=== PATIENT | male | born 1960 | race Caucasian/White ===

== ENCOUNTER 2018-07-29 10:21 | Observation (INO) | payer OTHER ==
--- NOTE | 2018-07-28 18:30 | GHP ---
DATE OF ADMISSION: 07/29/2018 ADMISSION DIAGNOSIS: BPH with urinary obstruction. HISTORY OF PRESENT ILLNESS: This is a 58-year-old gentleman who had the above symptoms. He had an A UA score initially of 22, and a postvoid residual 215. PSA was normal as of 12/2017, and he has atte mpted to be using alpha blockers without success. At the present time, he is admitted for a TURP. Sarina huynh has had a prostate ultrasound that revealed a volume of 47.5 g. Postvoid residuals are noted. PSA as of 12/08/2017 was 1.79. ALLERGIES: None. FAMILY HISTORY: Heart disease. SOCIAL HISTORY: Moderate alcohol consumption, nonsmoker. REVIEW OF SYSTEMS: Negative cardiac, respiratory, GI and endocrine. PHYSICAL EXAMINATION: VITAL SIGNS: Stable. CHEST: Clear. HEART: Regular rate and rhythm. ABDOM EN: Normal. No organomegaly, rebound or guarding. LOWER EXTREMITIES: Normal. Ultrasound of the prostate shows intravesical lobe with obstruction. Urodynamics that he had done revealed a peak flow of 2.7 mL/sec, average flow 1.9, postvoid residual 475, and then maximum detrusor contraction was 130 cm of water pressure, and he had significant obstr uction on the transrectal ultrasound. We do have a cystoscopy image which reveals +3 to 4 trabeculation of the bladder and intravesical lob e of the prostate. At the present time, he is admitted for transurethral resection of the prostate. Indications, compli cations, and options been discussed. Written and verbal consent were obtained and he is admitted for the above procedure. /[id number]/MODL
[~2018-07-29 10:21] MED LIST: MIDAZOLAM 2 MG/2 ML VIAL IVP ONE
[2018-07-29] MEDS ORDERED: LR 1,000 ML IV ONE (10:32)
--- NOTE | 2018-07-29 10:35 | PDHPUP ---
History & Physical Update H&P update statement: This history and physical update is based on an assessment of the patient which was completed after admission or registration (within 24 hours), but prior to the surgery/procedure. H&P update: H&P reviewed & patient examined, no change in patient's condition since H&P completed
[2018-07-29] MEDS ORDERED: ceFAZolin 2 GM/DEXTROSE 100 ML IV ONE (10:50)
[2018-07-29] MEDS ORDERED: CEFAZOLIN 2 GM/DEXTROSE/100 ML BAG IV ONE (10:52)
--- NOTE | 2018-07-29 10:54 | PDANEPAE ---
ANE Past Medical History - Cardiovascular History Hx Hypertension: No Hx Arrhythmias: No Hx Chest Pain: No Hx Coronary Artery / Peripheral Vascular Disease: Yes Hx CHF / Valvular Disease: No Hx Palpitations: No Cardiovascular History Comment: 2 stents - Pulmonary History Hx COPD: No Hx Asthma/Reactive Airway Disease: No Hx Recent Upper Respiratory Infection: No Hx Oxygen in Use at Home: No Hx Sleep Apnea: No Sleep Apnea Screening Result - Last Documented: Negative - Neurologic History Hx Cerebrovascular Accident: No Hx Seizures: No Hx Dementia: No - Endocrine History Hx Diabetes: No - Renal History Hx Renal Disorders: No - Liver History Hx Hepatic Disorders: No - Neurological & Psychiatric Hx Hx Neurological and Psychiatric Disorders: Yes Neurological / Psychiatric History Comment: depression - Cancer History Hx Cancer: No - Congenital Disorder History Hx Congenital Disorders: Yes Congenital History Comment: depression - GI History Hx Gastrointestinal Disorders: No - Other Health History Other Health History: none - Chronic Pain History Chronic Pain: No - Surgical History Prior Surgeries: colonoscopy. 2 cardiac stents 07/2017 ANE Review of Systems Review of Systems: - Exercise capacity METS (RN): 5 METS ANE Patient History - Allergies Allergies/Adverse Reactions: No Known Allergies Allergy (Verified 07/22/18 10:49) - Home Medications Home medications: home medication list seen and reviewed Home Medications: Aspirin [Aspirin 81mg (*)] 81 mg PO DAILY 07/22/18 [Last Taken Unknown] Atorvastatin Calcium [Lipitor 40 mg (*)] 80 mg PO DAILY 07/22/18 [Last Taken Unknown] Herbals/Supplements -Info Only 1 ea PO DAILY 07/22/18 [Last Taken Unknown] [place]-3 Fatty Acids [Fish Oil 1000 mg (*)] 1,000 mg PO DAILY 07/22/18 [Last Taken Unknown] Propylthiouracil [Propylthiouracil 50mg (*)] 50 mg PO BID 07/22/18 [Last Taken Unknown] Tamsulosin HCl [Flomax 0.4 MG (*)] 0.4 mg PO DAILY@12 07/22/18 [Last Taken Unknown] - Smoking Hx Smoking Status: Never smoked - Family Anes Hx Family Hx Anesthesia Complications: none ANE Labs/Vital Signs - Vital Signs Height: 185.42 cm Weight: 74.843 kg ANE Physical Exam - Airway Neck exam: FROM Mallampati Score: Class 2 Mouth exam: normal dental/mouth exam - Pulmonary Pulmonary: clear to auscultation - Cardiovascular Cardiovascular: regular rate and rhythym - ASA Status ASA Status: III ANE Anesthesia Plan Anesthesia Plan: GA w LMA
[2018-07-29] MEDS ORDERED: LIDOCAINE 2% JELLY 20 ML (UROJECT) ONE (11:11)
[2018-07-29] MEDS ORDERED: PROPOFOL 200 MG/20 ML VIAL ONE (11:11)
[2018-07-29] MEDS ORDERED: fentaNYL 100 MCG/2 ML INJ ONE ×2 (11:11→13:32)
[2018-07-29] MEDS ORDERED: ONDANSETRON 4 MG/2 ML VIAL ONE (11:55)
[2018-07-29] MEDS ORDERED: DEXAMETHASONE 4 MG/ML VIAL ONE (11:55)
[2018-07-29] MEDS ORDERED: PHENYLEPHRINE HCL 100 MCG/ML SYR ONE (12:20)
[2018-07-29] MEDS ORDERED: NALOXONE HCL 0.4 MG/ML INJ IVP PRN (12:35)
[2018-07-29] MEDS ORDERED: LR 500 ML IV PRN (12:35)
[2018-07-29] MEDS ORDERED: ALBUTEROL 3 ML DEYVIAL IH PRN (12:35)
[2018-07-29] MEDS ORDERED: METOCLOPRAMIDE 10 MG/2 ML VIAL IVP PRN (12:35)
[2018-07-29] MEDS ORDERED: MEPERIDINE 25 MG/0.5 ML AMP IVP PRN (12:35)
[2018-07-29] MEDS ORDERED: PROMETHAZINE HCL 25 MG/ML INJ IVP PRN (12:35)
[2018-07-29] MEDS ORDERED: DIAZEPAM 5 MG/ML 1 ML SYR IVP PRN (12:35)
[2018-07-29] MEDS ORDERED: HYDROmorphONE/DILAUDID 2 MG/ML INJ IVP PRN (12:35)
[2018-07-29] MEDS ORDERED: fentaNYL 100 MCG/2 ML INJ IVP PRN (12:35)
[2018-07-29] MEDS ORDERED: ONDANSETRON 4 MG/2 ML VIAL IVP PRN ×2 (12:35→12:50)
[2018-07-29] MEDS ORDERED: LABETALOL HCL 5 MG/ML 20 ML MDV IVP PRN (12:35)
[2018-07-29] MEDS ORDERED: OPIUM/BELLADONNA ALKALO SUPP PR PRN (12:47)
--- NOTE | 2018-07-29 12:47 | POSTOPPROG ---
Post Op Note Date of Operation: 07/29/18 (dictated) Surgeon: Raudel Suarez Anesthesiologist: Carine Anesthesia: LMA Pre-op Diagnosis: bph / retention Procedure: turp Inf/Abcess present in the surg proc area at time of surgery?: No EBL: 50-100 Drains: Other (urban) Specimen(s): sent
[2018-07-29] MEDS ORDERED: ONDANSETRON DISINTEGRATING 4 MG TAB PO PRN (12:50)
[2018-07-29] MEDS ORDERED: ACETAMINOPHEN 325 MG TAB PO PRN (12:50)
[2018-07-29] MEDS ORDERED: ZOLPIDEM TARTRATE 5 MG TAB PO PRN (12:50)
[2018-07-29] MEDS ORDERED: D5W LR 1,000 ML IV SCH (13:00)
--- NOTE | 2018-07-29 13:04 | POSTANESTH ---
Post Anesthetic Evaluation Cardiovascular Status: Normal, Stable Respiratory Status: Normal, Stable Level of Consciousness/Mental Status: Can Participate in Eval Pain Control: Adequate, Prn Tx Ordered Nausea/Vomiting Control: Adequate, Prn Tx Ordered Complications Possibly Related to Anesthesia: None Noted
--- NOTE | 2018-07-29 13:11 | GOP ---
DATE OF OPERATION: 07/29/2018 SURGEON: Raudel Suarez MD ANESTHESIA: General. ANESTHESIOLOGIST: Daisy Hawk MD. PREOPERATIVE DIAGNOSIS: Benign prostatic hypertrophy with obstruction. POSTOPERATIVE DIAGNOSIS: Benign prostatic hypertrophy with obstruction. PROCEDURE PERFORMED: Transurethral resection of the prostate. FINDINGS: SPECIMENS: Sent to pathology. DESCRIPTION OF PROCEDURE: After being prepped and draped in normal sterile fashion in dorsal lithoto my position, appropriate time-out was done. The resectoscope passed the bladder under direct vision. He had an intravesical lobe lateral lobar hypertrophy noted and +3 to 4 trabeculation of bladder. At that point, I took down the intravesical lobe of the prostate with bipolar. Then the right latera l lobe and right posterior lobe, left lateral lobe and left portion of the posterior lobe resected in a similar fashion. At the end of the procedure, the ureteral orifices preserved. Bladder was Ellik 'd free of all chips and clots. Bladder neck was hemostatic and verumontanum preserved. External sp hincter approximated at the midline symmetrically. With a coude maneuver, he had an excellent flow. Uro-jet placed in his urethra and a Ku catheter placed with 70 cc balloon inflated, traction plac ed. He will be admitted overnight. COMPLICATIONS: No complications encountered. /[id number]/MODL
--- NOTE | 2018-07-29 16:19 | ASMTCMCOM ---
CM Note CM Note Notes: Patient chart reviewed for discharge planning purposes. 58 year old male s/p TURP. No current needs identified CM available should needs change. Plan: likely to discharge independently when medically stable for discharge. Date Signed: 07/29/2018 04:19 PM Electronically Signed By:Hyun Cavanaugh RN
[2018-07-29] MEDS: HYDROCODONE/APAP 5/325 TAB PO PRN (20:05)
[2018-07-29] MEDS: PROPYLTHIOURACIL 50 MG TAB PO SCH (20:06)
[2018-07-30] MEDS: HYDROCODONE/APAP 5/325 TAB PO PRN (04:17)
[2018-07-30 07:34] VITALS: BP 101/58
[2018-07-30] MEDS: PROPYLTHIOURACIL 50 MG TAB PO SCH (08:06)
--- NOTE | 2018-07-30 08:22 | SOAPPROG ---
SOAP Progress Note Assessment/Plan: Assessment: BPH with obstruction/lower urinary tract symptoms Acute POD# 1 DC urban and plan for DC Plan: as noted 07/30/18 09:18 Subjective: doing well Objective: Vital Signs Temp Pulse Resp BP Pulse Ox 37.6 C 63 16 101/58 L 95 07/30/18 07:33 07/30/18 07:33 07/30/18 07:33 07/30/18 07:33 07/30/18 07:33 07/29/18 07/30/18 07/31/18 05:59 05:59 05:59 Intake Total 2220 919 Output Total 6910 1965 Balance -350 1046 Physical Exam - Physical Exam General Appearance: alert Neck: normal inspection Respiratory: No respiratory distress Cardiac/Chest: regular rate, rhythm Neuro/Psych: alert, oriented x 3 ICD10 Worksheet Patient Problems: Problems Problem Status Onset BPH with obstruction/lower urinary tract symptoms Acute - ICD10 Problem Qualifiers (1) BPH with obstruction/lower urinary tract symptoms
[2018-07-30] MEDS ORDERED: ASPIRIN 81 MG CHEWABLE TAB PO SCH (09:00)
[2018-07-30] MEDS ORDERED: ATORVASTATIN CALCIUM 40 MG TAB PO SCH (09:00)
--- NOTE | 2018-07-30 09:27 | ASDISCHSUM ---
Discharge Information Plan Status:Home with No Needs Medically Cleared to Leave: Discharge Date: D/C Disposition:Home Health Service [facility] D/C Disposition:Home, Routine, Self-Care Projected Discharge Date: Transportation at D/C:Family Discharge Delay Reason: Follow-Up Date: Discharge Slot: Final Diagnosis: Placement Information Patient Contact Information Contact Name:BEATA Relationship: Address:[address] [place] [address] Work Phone: City:[facility] Phone: State/Zip Code:[place] [address] Email: Financial Information [facility] Primary Plan Number:[id number] Secondary Plan Desc: Secondary Plan Number: Assessment Information [facility] CM Progress Note CM Note CM Note Notes: Patient chart reviewed for discharge planning purposes. 58 year old male s/p TURP. No current needs identified CM available should needs change. Plan: likely to discharge independently when medically stable for discharge. Date Signed: 07/29/2018 04:19 PM Electronically Signed By:Hyun Cavanaugh RN LACE LACE Length of stay for Answers: Less than 1 day current admission Acuity / Level of Answers: No Care: Did the patient have an inpatient admission? # of Emergency department Answers: 0 visits in the last 6 months Date Signed: 07/30/2018 09:26 AM Electronically Signed By:Herminia Mayers Intervention Information
== END 2018-07-30 13:03 | disposition home or self-care (01) ==
LOC: F3N 10:21 → EDSTATUS 11:45 → F1N 14:15
PROVIDERS: ADMIT Specialist; ATTEND Specialist
PROC: 0VB08ZZ Excision of Prostate, Via Natural or Artificial Opening Endoscopic (ICD-10-PCS; principal; 2018-07-29 11:30)
DX: N40.1 Benign prostatic hyperplasia with lower urinary tract symptoms (principal); R33.8 Other retention of urine; I25.10 Atherosclerotic heart disease of native coronary artery without angina pectoris; Z95.5 Presence of coronary angioplasty implant and graft
CPT/HCPCS: 52601; G0378; J0690; J1100; J2250; J2370; J2405; J2704; J3010